=== PATIENT | female | born 1965 | race African-American/Black ===

== ENCOUNTER 2016-05-29 09:05 | Emergency (ER) | payer OTHER ==
[2016-05-29 09:17] VITALS: BP 113/58; PULSE 92; BMI 32.9
--- NOTE | 2016-05-29 09:53 | PDOC ---
History of Present Illness - General History Source: Patient, Old Records Exam Limitations: No Limitations - History of Present Illness Initial Comments: 05/29/16 10:55 The patient is a 50 year old female with a significant past medical history of HTN, HDL, anxiety and gestational diabetes, who presents to the emergency department today for further evaluation of flu like symptoms for 6 days. The patient notes that multiple people at her place of work are sick with influenza and strep throat. The patient states that she has been experiencing loss of appetite, nausea, shakes, and chills. The patient reports a subjective fever Tmax 101.3F. The patient is unsure whether or not she received a flu shot this season. The patient denies vomiting, or diarrhea. The patient denies chest pain, cough, and shortness of breath. <Jewel Thompson - Last Filed: 05/29/16 11:02> <Jeovany Perera - Last Filed: 05/29/16 11:37> - General Chief Complaint: SIRS, Suspected/Possible Stated Complaint: SOB, BODY ACHES Time Seen by Provider: 05/29/16 09:50 Past History <Jewel Thompson - Last Filed: 05/29/16 11:02> - Past Medical History Anemia: No Asthma: No Cancer: No Cardiac Disorders: No CVA: No COPD: No CHF: No Dementia: No Diabetes: Yes GI Disorders: No Disorders: No HTN: Yes Hypercholesterolemia: No Liver Disease: No Seizures: No Thyroid Disease: No - Surgical History Abdominal Surgery: No Appendectomy: No Cardiac Surgery: No Cholecystectomy: Yes Lung Surgery: No Neurologic Surgery: No Orthopedic Surgery: No - Immunization History Immunization Up to Date: Yes (? FLU) - Psycho/Social/Smoking Cessation Hx Anxiety: No Suicidal Ideation: No Smoking History: Current every day smoker Have you smoked in the past 12 months: Yes Number of Cigarettes Smoked Daily: 20 Information on smoking cessation initiated: No 'Breaking Loose' booklet given: 04/16/16 Hx Alcohol Use: No Drug/Substance Use Hx: No Substance Use Type: None Hx Substance Use Treatment: No <Jeovany Perera - Last Filed: 05/29/16 11:37> - Past Medical History Allergies/Adverse Reactions: Allergies Allergy/AdvReac Type Severity Reaction Status Date / Time Penicillins Allergy Swelling Verified 05/29/16 09:13 Home Medications: Ambulatory Orders Amlodipine Besylate [Norvasc -] 5 mg PO DAILY 04/16/16 Lisinopril [Prinivil] 0 mg PO DAILY 04/16/16 Metformin HCl [Glucophage -] 500 mg PO BID 04/16/16 Pravastatin Sodium [Pravachol -] 0 mg PO HS 04/16/16 Ondansetron [Zofran *Odt*] 8 mg SL TID #30 od.tablet 05/29/16 Review of Systems - Review of Systems Able to Perform ROS?: Yes Comments:: 05/29/16 10:55 GENERAL/CONSTITUTIONAL: (+) Fever, chills, and shakes, HEAD, EYES, EARS, NOSE AND THROAT: No change in vision. No ear pain or discharge. No sore throat. CARDIOVASCULAR: No chest pain or shortness of breath. RESPIRATORY: No cough, wheezing, or hemoptysis. GASTROINTESTINAL: No nausea, vomiting, diarrhea or constipation. GENITOURINARY: No dysuria, frequency, or change in urination. MUSCULOSKELETAL: No joint or muscle swelling or pain. No neck or back pain. SKIN: No rash NEUROLOGIC: No headache, vertigo, loss of consciousness, or change in strength/ sensation. ENDOCRINE: No increased thirst. No abnormal weight change. HEMATOLOGIC/LYMPHATIC: No anemia, easy bleeding, or history of blood clots. ALLERGIC/IMMUNOLOGIC: No hives or skin allergy. <Jewel Thompson - Last Filed: 05/29/16 11:02> *Physical Exam - Vital Signs Last Vital Signs Temp Pulse Resp BP Pulse Ox 101.3 F H 92 H 20 113/58 99 05/29/16 09:14 05/29/16 09:14 05/29/16 09:14 05/29/16 09:14 05/29/16 10:45 - Physical Exam Comments: 05/29/16 11:00 GENERAL: Awake, alert, and fully oriented, in no acute distress HEAD: No signs of trauma EYES: PERRLA, EOMI, sclera anicteric, conjunctiva clear ENT: Auricles normal inspection, hearing grossly normal, nares patent, oropharynx clear without exudates. Moist mucosa NECK: Normal ROM, supple, no lymphadenopathy, JVD, or masses LUNGS: Breath sounds equal, clear to auscultation bilaterally. No wheezes, and no crackles HEART: Regular rate and rhythm, normal S1 and S2, no murmurs, rubs or gallops ABDOMEN: Soft, nontender, normoactive bowel sounds. No guarding, no rebound. No masses EXTREMITIES: Normal range of motion, no edema. No clubbing or cyanosis. No cords, erythema, or tenderness NEUROLOGICAL: Cranial nerves II through XII grossly intact. Normal speech, normal gait SKIN: Warm, Dry, normal turgor, no rashes or lesions noted. <Jewel Thompson - Last Filed: 05/29/16 11:02> - Vital Signs Last Vital Signs Temp Pulse Resp BP Pulse Ox 101.3 F H 92 H 20 113/58 97 05/29/16 09:14 05/29/16 09:14 05/29/16 09:14 05/29/16 09:14 05/29/16 09:14 <Jeovany Perera - Last Filed: 05/29/16 11:37> ED Treatment Course - ADDITIONAL ORDERS Additional order review: 05/29/16 10:20 Group A Strep Rapid Antigen - Final Throat - Medications Given in the ED: ED Medications Discontinued Medications Generic Name Dose Route Start Last Admin Trade Name Freq PRN Reason Stop Dose Admin Acetaminophen 1,000 mg 05/29/16 09:54 05/29/16 10:15 Tylenol - PO 05/29/16 09:55 1,000 mg ONCE ONE Administration Ibuprofen 800 mg 05/29/16 09:54 05/29/16 10:10 Motrin - PO 05/29/16 09:55 800 mg ONCE ONE Administration Ondansetron HCl 8 mg 05/29/16 09:54 05/29/16 10:26 Zofran Odt - SL 05/29/16 09:55 8 mg ONCE ONE Administration <Jewel Thompson - Last Filed: 05/29/16 11:02> *DC/Admit/Observation/Transfer - Attestations Scribe Attestion: 05/29/16 11:00 Documentation prepared by Jewel Thompson, acting as medical observer for Jeovany Perera MD. <Jewel Thompson - Last Filed: 05/29/16 11:02> - Attestations Physician Attestion: 05/29/16 09:50 I, Dr. Jeovany Perera, attest that this document has been prepared under my direction and personally reviewed by me in its entirety. I further attest, that it accurately reflects all work, treatment, procedures and medical decision -making performed by me. <Jeovany Perera - Last Filed: 05/29/16 11:37> Diagnosis at time of Disposition: Viral syndrome - Discharge Dispostion Disposition: HOME Condition at time of disposition: Good - Prescriptions Prescriptions: Ondansetron [Zofran *Odt*] 8 mg SL TID #30 od.tablet - Referrals Referrals: Cuba Lincoln MD, MD [Primary Care Provider] - - Patient Instructions Printed Discharge Instructions: How to Avoid a Cold or Flu, DI for Viral Upper Respiratory Infection -- Adult Additional Instructions: Dony- Sorry that you are not feeling well. Your test for strep was negative. Your test for Flu was negative, Your CXR for Pneumonia was negative. You have a viral infection and you should be getting over it in a few days. I wrote for some Zofran ODT that you can use to treat your nausea. Follow up with your doctor in a few days. Return to us if worse, new symptoms or problems occur. Jeovany Dennis Dr - Post Discharge Activity Work/School Note: Back to Work
[2016-05-29] MEDS ORDERED: ONDANSETRON *ODT* 4 MG TABLET SL ONE (09:54)
[2016-05-29] MEDS ORDERED: IBUPROFEN 400 MG TABLET (FP) PO ONE ×2 (09:54→10:10)
[2016-05-29] MEDS ORDERED: ACETAMINOPHEN 500 MG TABLET (FP) PO ONE (09:54)
[2016-05-29] MEDS ORDERED: ONDANSETRON 8 MG TABLET (FP) PO ONE (10:10)
[2016-05-29] MEDS ORDERED: ACETAMINOPHEN 325 MG TABLET (FP) ONE (10:10)
[2016-05-29 12:02] VITALS: TEMP 99.1
== END 2016-05-29 12:05 | disposition home or self-care (01) ==
LOC: JER 09:05
DX: B34.9 Viral infection, unspecified (principal); I10 Essential (primary) hypertension; E11.9 Type 2 diabetes mellitus without complications; Z79.84 Long term (current) use of oral hypoglycemic drugs; E78.00 Pure hypercholesterolemia, unspecified; F41.9 Anxiety disorder, unspecified; F17.210 Nicotine dependence, cigarettes, uncomplicated
CPT/HCPCS: 71020-TC; 87070; 87430; 87804; 99282-25

== ENCOUNTER 2016-09-09 15:22 | Emergency (ER) | payer OTHER ==
[2016-09-09 15:29] VITALS: BP 146/92; PULSE 68; TEMP 98.2; BMI 34.0
[2016-09-09] MEDS ORDERED: IBUPROFEN 600 MG TABLET (FP) PO ONE ×3 (15:52→15:58)
--- NOTE | 2016-09-09 15:58 | PDOC ---
History of Present Illness - General Chief Complaint: Injury Stated Complaint: RT ELBOW PAIN, NUMBNESS Time Seen by Provider: 09/09/16 15:36 History Source: Patient Exam Limitations: No Limitations - History of Present Illness Initial Comments: 09/09/16 15:54 50 year old female with medical history of type 2 diabetes, htn and cholesterolemia and a surgical history of tubal ligation and cholecystectomy presents with pain to right elbow. States sustained while working on Thursday by hitting it on metal door. Reports pain with extension of arm. Denies numbness or tingling in fingers. Took no medication so far. Occurred: reports: other (3-4 days ago) Severity: reports: mild Upper Extremity Pain Location: right: elbow Method of Injury: reports: direct blow Modifying Factors: improves with: immobilization Extremity Pain Location - Extremity Pain Location Extremity Pain Locations: right: elbow Past History - Travel Traveled outside of the country in the last 30 days: No Close contact w/someone who was outside of country & ill: No - Past Medical History Allergies/Adverse Reactions: Allergies Allergy/AdvReac Type Severity Reaction Status Date / Time Penicillins Allergy Swelling Verified 09/09/16 15:25 Home Medications: Ambulatory Orders Amlodipine Besylate [Norvasc -] 5 mg PO DAILY 04/16/16 Lisinopril [Prinivil] 0 mg PO DAILY 04/16/16 Metformin HCl [Glucophage -] 500 mg PO BID 04/16/16 Pravastatin Sodium [Pravachol -] 0 mg PO HS 04/16/16 Ondansetron [Zofran *Odt*] 8 mg SL TID #30 od.tablet 05/29/16 Ibuprofen 600 mg PO QID #20 tablet 09/09/16 Anemia: No Asthma: No Cancer: No Cardiac Disorders: No CVA: No COPD: No CHF: No Dementia: No Diabetes: Yes GI Disorders: No Disorders: No HTN: Yes Hypercholesterolemia: No Liver Disease: No Seizures: No Thyroid Disease: No - Surgical History Abdominal Surgery: No Appendectomy: No Cardiac Surgery: No Cholecystectomy: Yes Lung Surgery: No Neurologic Surgery: No Orthopedic Surgery: No - Immunization History Immunization Up to Date: Yes (? FLU) - Psycho/Social/Smoking Cessation Hx Anxiety: No Suicidal Ideation: No Smoking History: Current every day smoker Have you smoked in the past 12 months: Yes Number of Cigarettes Smoked Daily: 20 Information on smoking cessation initiated: No 'Breaking Loose' booklet given: 04/16/16 Hx Alcohol Use: No Drug/Substance Use Hx: No Substance Use Type: None Hx Substance Use Treatment: No Review of Systems - Review of Systems Able to Perform ROS?: Yes Is the patient limited Sinhala proficient: No Constitutional: No: Chills, Fever, Weakness HEENTM: No: Nose Congestion, Tinnitus, Nose Bleeding, Throat Swelling, Dental Problems Respiratory: No: Cough, Orthopnea, Shortness of Breath, Wheezing, Productive cough Cardiac (ROS): No: Chest Pain, Irregular Heart Rate, Chest Tightness ABD/GI: No: Constipated, Diarrhea : No: See HPI, Incontinence, Urgency, Testicular Mass Musculoskeletal: Yes: Joint Pain. No: Joint Swelling Integumentary: No: Bruising, Lumps Neurological: No: Numbness, Paresthesia *Physical Exam - Vital Signs Last Vital Signs Temp Pulse Resp BP Pulse Ox 98.2 F 68 19 146/92 98 09/09/16 15:25 09/09/16 15:25 09/09/16 15:25 09/09/16 15:25 09/09/16 15:25 - Physical Exam General Appearance: Yes: Appropriately Dressed. No: Apparent Distress HEENT: positive: EOMI, LAN, TMs Normal, Pharynx Normal Neck: positive: Supple Respiratory/Chest: positive: Lungs Clear, Normal Breath Sounds Cardiovascular: positive: Regular Rhythm, Regular Rate, S1, S2 Musculoskeletal: positive: Normal Inspection, Other (unable to completely extend right arm at elbow without pain). negative: Decreased Range of Motion, Vertebral Tenderness Extremity: positive: Normal Capillary Refill, Normal Inspection, Normal Range of Motion, Other (tenderness with palpation over lateral aspect of right elbow) Medical Decision Making - Medical Decision Making 09/09/16 15:58 50 year old female presents with right elbow pain ibuprofen 600mg po xray of right elbow 09/09/16 16:28 xray with no fracture or acute pathology *DC/Admit/Observation/Transfer Diagnosis at time of Disposition: Right elbow pain - Discharge Dispostion Disposition: HOME Condition at time of disposition: Good Admit: No - Prescriptions Prescriptions: Ibuprofen 600 mg PO QID #20 tablet - Referrals Referrals: Cuba Lincoln MD, MD [Primary Care Provider] - Ronald Jarvis MD [Staff Physician] - - Patient Instructions Printed Discharge Instructions: DI for Elbow Pain Additional Instructions: Activity as tolerated. May use sling for comfort. Please do exercises as directed. If symptoms continues please call orthopedic for follow up appointment - Post Discharge Activity Work/School Note: Back to Work
== END 2016-09-09 16:35 | disposition home or self-care (01) ==
LOC: JERFT 15:22
DX: M25.521 Pain in right elbow (principal); W22.8XXA Striking against or struck by other objects, initial encounter; Y93.89 Activity, other specified; Y92.89 Other specified places as the place of occurrence of the external cause; Y99.0 Civilian activity done for income or pay; I10 Essential (primary) hypertension; Z79.84 Long term (current) use of oral hypoglycemic drugs; E78.00 Pure hypercholesterolemia, unspecified
CPT/HCPCS: 73070-TC-RT; 99281-25

== ENCOUNTER 2019-04-23 06:21 | Emergency (ER) | payer OTHER ==
[2019-04-23 07:12] VITALS: BMI 28.3
[2019-04-23] MEDS ORDERED: ONDANSETRON 4 MG/2 ML VIAL IVPUSH ONE (07:32)
[2019-04-23] MEDS ORDERED: SODIUM CHLORIDE 0.9% 500 ML INFUS.BAG IV ONE (07:32)
--- NOTE | 2019-04-23 07:33 | PDOC ---
History of Present Illness - General Chief Complaint: Respiratory Stated Complaint: COUGH Time Seen by Provider: 04/23/19 07:26 - History of Present Illness Initial Comments: 04/23/19 08:58 CHIEF COMPLAINT: multiple complaints HISTORY OF PRESENT ILLNESS: 53 yo F with hx of HTN, HDL, anxiety presents to ED with multiple complaints x 1 week. Patient c/o of cough, runny nose, R ear pain , nausea, and "feeling of water fall in my stomach." Patient reports she has not taken any of her home meds in one week due to her nausea secondary to "not feeling well." She reports one episode of vomiting over the week but has had decreased appetite and was afraid to take her medications without food. She reports feeling "dizzy and weak but maybe because I haven't eaten." No recent travel or sick contacts. PAST MEDICAL HISTORY: Denies past medical history FAMILY HISTORY: Denies SOCIAL HISTORY: Denies tobacco, alcohol, illicit drug use. SURGICAL HISTORY: Denies ALLERGIES: No known drug allergies REVIEW OF SYSTEMS General/Constitutional: Subjective fever. Denies weakness, weight change. HEENT: Denies change in vision. Denies ear pain or discharge. Denies sore throat. Cardiovascular: Denies chest pain or shortness of breath. Respiratory: Cough, Denies wheezing, or hemoptysis. Gastrointestinal: Nausea, dnies vomiting, diarrhea or constipation. Denies rectal bleeding. Genitourinary: Denies dysuria, frequency, or change in urination. Musculoskeletal: Denies joint or muscle swelling or pain. Denies neck or back pain. Skin and breasts: Denies rash or easy bruising. Neurologic: Denies headache, vertigo, loss of consciousness, or loss of sensation. Psychiatric: Denies depression or anxiety. PHYSICAL EXAM General Appearance: Well-appearing, appropriately dressed. No apparent distress , no intoxication. HEENT: EOMI, PERRLA, normal ENT inspection, normal voice, TMs normal, pharynx normal. No conjunctival pallor. No photophobia, scleral icterus. Neck: Supple. Trachea midline. No tenderness, rigidity, carotid bruit, stridor , lymphadenopathy, or thyromegaly. Respiratory/Chest: Lungs CTAB. No shortness of breath, chest tenderness, respiratory distress, accessory muscle use. No crackles, rales, rhonchi, stridor , wheezing, dullness Cardiovascular: RRR. S1, S2. No JVD, murmur, bradycardia, tachycardia. Vascular Pulses: Dorsalis-Pedis (R): 2+, Dorsalis-Pedis (L): 2+ Gastrointestinal/Abdominal: Normal bowel sounds. Abdomen soft, non-distended. No tenderness or rebound tenderness. No organomegaly, pulsatile mass, guarding , hernia, hepatomegaly, splenomegaly. Lymphatic: No adenopathy, tenderness. Musculoskeletal/Extremities: Normal inspection. FROM of all extremities, normal capillary refill. Pelvis Stable. No CVA tenderness. No tenderness to extremities, pedal edema, swelling, erythema or deformity. Integumentary: Appropriate color, dry, warm. No cyanosis, erythema, jaundice or rash Neurologic: meat supervisor II-XII intact. Fully oriented, alert. Appropriate mood/affect. Motor strength 5/5. No appreciable EOM palsy, facial droop or sensory deficit. 04/23/19 09:00 04/23/19 09:03 04/23/19 09:46 Past History - Past Medical History Allergies/Adverse Reactions: Allergies Allergy/AdvReac Type Severity Reaction Status Date / Time Penicillins Allergy Swelling Verified 04/23/19 07:04 Home Medications: Ambulatory Orders Albuterol 0.083% Nebulizer Sushma [Ventolin 0.083% Nebulizer Soln -] 1 neb NEB Q4H #30 vial 04/23/19 Albuterol Sulfate Inhaler - [Ventolin HFA Inhaler -] 1 - 2 inh PO Q4H #1 inhaler 04/23/19 Benzonatate [Tessalon Pearls -] 100 mg PO TID #21 capsule 04/23/19 Buspirone HCl [Buspar -] 15 mg PO DAILY 04/23/19 Losartan Potassium [Cozaar] 100 mg PO DAILY 04/23/19 Metformin HCl [Glucophage] 1,000 mg PO BID 04/23/19 Ondansetron HCl [Zofran] 4 mg PO TID PRN #15 tablet 04/23/19 Rosuvastatin Calcium [Crestor] 20 mg PO HS 04/23/19 Sertraline HCl [Zoloft -] 50 mg PO DAILY 04/23/19 Anemia: No Asthma: No Cancer: No Cardiac Disorders: No CVA: No COPD: No CHF: No Dementia: No Diabetes: Yes GI Disorders: No Disorders: No HTN: Yes Hypercholesterolemia: No Liver Disease: No Seizures: No Thyroid Disease: No - Surgical History Abdominal Surgery: No Appendectomy: No Cardiac Surgery: No Cholecystectomy: Yes Lung Surgery: No Neurologic Surgery: No Orthopedic Surgery: No - Immunization History Immunization Up to Date: Yes (? FLU) - Psycho Social/Smoking Cessation Hx Smoking History: Current every day smoker Have you smoked in the past 12 months: Yes Number of Cigarettes Smoked Daily: 20 Information on smoking cessation initiated: No 'Breaking Loose' booklet given: 04/16/16 Hx Alcohol Use: No Drug/Substance Use Hx: No Substance Use Type: None Hx Substance Use Treatment: No *Physical Exam - Vital Signs Last Vital Signs Temp Pulse Resp BP Pulse Ox 98.1 F 66 18 177/74 H 100 04/23/19 07:05 04/23/19 07:05 04/23/19 07:05 04/23/19 07:05 04/23/19 07:05 ED Treatment Course - LABORATORY CBC & Chemistry Diagram: 04/23/19 08:40 04/23/19 08:40 Medical Decision Making - Medical Decision Making 04/23/19 09:48 53 yo F with hx of HTN, HDL, anxiety presents to ED with multiple complaints x 1 week. -labs -EKG -flu -IVF, zofran -CXR EKG unremarkable, unchanged from prior. 04/23/19 11:51 CXR negative. flu negative. labs unremarkable. clinical presentation consistent with viral URI. -ramon izquierdo pt requests albuterol pump and nebs. Advised patient to take medication as prescribed and follow up with PCP within the next week. Advised patient of signs and symptoms for return to ED. Patient verbalized understanding and agrees to plan. Discharge - Discharge Information Problems reviewed: Yes Clinical Impression/Diagnosis: Viral syndrome HTN (hypertension) Qualifiers: Hypertension type: unspecified Qualified Code(s): I10 - Essential (primary) hypertension Condition: Stable Disposition: HOME - Admission No - Additional Discharge Information Prescriptions: Albuterol 0.083% Nebulizer Sushma [Ventolin 0.083% Nebulizer Soln -] 1 neb NEB Q4H #30 vial Albuterol Sulfate Inhaler - [Ventolin HFA Inhaler -] 1 - 2 inh PO Q4H #1 inhaler Benzonatate [Tessalon Pearls -] 100 mg PO TID #21 capsule Ondansetron HCl [Zofran] 4 mg PO TID PRN #15 tablet PRN Reason: nausea/vomiting - Follow up/Referral Referrals: Cuba Lincoln MD, [Primary Care Provider] - - Patient Discharge Instructions Patient Printed Discharge Instructions: DI for Viral Upper Respiratory Infection -- Adult Additional Instructions: You were tested negative for flu today. Your chest x-ray was negative for pneumonia. Please take medications as prescribed. Please resume your daily medications as prescribed by your primary care doctor. Follow up with Dr. Lincoln within the next 5 days for continued monitoring of your symptoms. If you develop persistent fever; worsening nausea, vomiting, or diarrhea; shortness of breath; chest pain; or any new or worsening symptoms, please return to the ER. - Post Discharge Activity
[2019-04-23] MEDS ORDERED: ONDANSETRON 4 MG/2 ML VIAL ONE (08:26)
[2019-04-23 08:55] LABS: BASO % 0.3 % (0-2.0); EOS % 1.9 % (0-4.5); HEMATOCRIT 47.9 % (32.4-45.2); HEMOGLOBIN 15.9 GM/dL (10.7-15.3); LYMPH % 59.4 % (8-40); MCH 31.1 pg (25.7-33.7); MCHC 33.2 g/dl (32.0-36.0); MEAN CELL VOLUME 93.7 fl (80-96); MEAN PLT VOLUME 9.4 fl (7.5-11.1); MONO % 7.1 % (3.8-10.2); NEUT % 31.3 % (42.8-82.8); PLATELET COUNT 244 K/MM3 (134-434); RBC 5.11 M/mm3 (3.60-5.2); WHITE BLOOD COUNT 6.2 K/mm3 (4.0-10.0)
[2019-04-23 09:24] LABS: BILIRUBIN,TOTAL 0.4 mg/dL (0.2-1); BLOOD UREA NITROGEN 6.9 mg/dL (7-18); CALCIUM 9.1 mg/dL (8.5-10.1); CREATININE 0.7 mg/dL (0.55-1.3); POTASSIUM 4.2 mmol/L (3.5-5.1); TOT PROT 7.2 g/dl (6.4-8.2)
[2019-04-23 10:52] VITALS: BP 124/68; PULSE 60; TEMP 98
--- NOTE | 2019-04-23 13:30 | EKG ---
Test Reason : Blood Pressure : / mmHG Vent. Rate : 065 BPM Atrial Rate : 065 BPM P-R Int : 174 ms QRS Dur : 096 ms QT Int : 398 ms P-R-T Axes : 060 044 -17 degrees QTc Int : 413 ms NORMAL SINUS RHYTHM NONSPECIFIC T WAVE ABNORMALITY ABNORMAL ECG WHEN COMPARED WITH ECG OF 16-APR-2016 16:09, CRITERIA FOR SEPTAL INFARCT ARE NO LONGER PRESENT NON-SPECIFIC CHANGE IN ST SEGMENT IN ANTERIOR LEADS Confirmed by MD LUCILLE, KEIRY ([id number]) on 04/23/2019 1:30:21 PM Referred By: Confirmed By:KEIRY ADKINS MD
== END 2019-04-23 10:53 | disposition home or self-care (01) ==
LOC: JER 06:21
DX: J06.9 Acute upper respiratory infection, unspecified (principal); B34.9 Viral infection, unspecified; I10 Essential (primary) hypertension; E11.9 Type 2 diabetes mellitus without complications; Z79.84 Long term (current) use of oral hypoglycemic drugs; E78.5 Hyperlipidemia, unspecified; F41.9 Anxiety disorder, unspecified; Z88.0 Allergy status to penicillin
CPT/HCPCS: 36415; 71046-TC-FY; 80053; 83690; 85025; 87804; 93005; 93010; 99282-25

== ENCOUNTER 2022-04-10 09:40 | Emergency (ER) | payer BC, OTHER ==
[2022-04-10 09:49] VITALS: TEMP 97.7; BMI 25.7
[2022-04-10] MEDS ORDERED: LORazepam 2 MG/ML SDV VIAL IVPUSH ONE (12:05)
[2022-04-10 12:13] LABS: BASO % 0.8 % (0-2.0); EOS % 1.4 % (0-4.5); HEMATOCRIT 49.6 % (32.4-45.2); HEMOGLOBIN 16.6 GM/dL (10.7-15.3); LYMPH % 40.7 % (8-40); MCHC 33.4 g/dl (32.0-36.0); MEAN CELL VOLUME 92.7 fl (80-96); MONO % 7.8 % (3.8-10.2); NEUT % 49.3 % (42.8-82.8); PLATELET COUNT 315 10^3/uL (134-434); RBC 5.36 M/mm3 (3.60-5.2); WHITE BLOOD COUNT 9.1 K/mm3 (4.0-10.0)
[2022-04-10 12:32] LABS: CALCIUM 10.1 mg/dL (8.5-10.1)
[2022-04-10 12:33] LABS: ALBUMIN 4.4 g/dl (3.4-5.0); BLOOD UREA NITROGEN 5.9 mg/dL (7-18)
[2022-04-10 12:36] LABS: CREATININE 0.8 mg/dL (0.55-1.3)
[2022-04-10 12:37] LABS: TOT PROT 7.8 g/dl (6.4-8.2)
[2022-04-10 12:38] LABS: BILIRUBIN,TOTAL 0.4 mg/dL (0.2-1)
[2022-04-10 15:12] VITALS: BP 151/89; PULSE 68; RESP 17
[2022-04-10 15:33] LABS: CSF APPEARANCE CLEAR (CLEAR); CSF COLOR COLORLESS (COLORLESS); CSF WBC 0 mm3 (0-5)
[2022-04-10] MEDS ORDERED: LACTATED RINGERS SOLUTION 1,000 ML IV STA (15:33)
[2022-04-10 15:34] LABS: CSF APPEARANCE CLEAR (CLEAR); CSF COLOR COLORLESS (COLORLESS); CSF WBC 0 mm3 (0-5)
[2022-04-10 17:43] LABS: BF GLUCOSE (CSF ONLY) 80 mg/dL (40-70)
== END 2022-04-10 18:29 | disposition home or self-care (01) ==
LOC: SUPCPDRO 09:40 → JER 09:40
PROC: 009U3ZX Drainage of Spinal Canal, Percutaneous Approach, Diagnostic (ICD-10-PCS; principal; 2022-04-10)
PROC: 3E033GC Introduction of Other Therapeutic Substance into Peripheral Vein, Percutaneous Approach (ICD-10-PCS; 2022-04-10)
DX: R20.2 Paresthesia of skin (principal)
CPT/HCPCS: 36415; 70450-TC; 80053; 82945; 83036; 84157; 85025; 87070; 87205; 99285-25

== ENCOUNTER → 2022-10-01 | Day surgery (SDC) | payer BC | END | disposition home or self-care (01) | LOC: JMAMMOTONE 08:35 → JRADUS-SUR 08:35 | PROVIDERS: ATTEND Physician Assistant | PROC: 0H9T3ZX Drainage of Right Breast, Percutaneous Approach, Diagnostic (ICD-10-PCS; principal; 2022-10-01) | DX: D24.1 Benign neoplasm of right breast (principal) | CPT/HCPCS: 19083; 87899; 88305-TC; 88341-TC; 88342-TC; A4648 ==

== ENCOUNTER 2023-05-27 11:01 | Emergency (ER) | payer BC ==
[2023-05-27 11:41] VITALS: BP 147/90; PULSE 66; RESP 14; TEMP 98; BMI 26.4
[2023-05-27] MEDS ORDERED: DEXAMETHASONE 4 MG TABLET (FP) PO ONE (13:29)
[2023-05-27] MEDS ORDERED: ACETAMINOPHEN 325 MG TABLET (FP) PO ONE (13:29)
[2023-05-27] MEDS ORDERED: DEXAMETHASONE 4 MG TABLET (FP) ONE (13:32)
[2023-05-27] MEDS ORDERED: ACETAMINOPHEN 325 MG TABLET (FP) ONE (13:32)
[2023-05-27 14:20] LABS: THROAT:GRP A STREP NOT DETECTED (NOTDETECTED)
== END 2023-05-27 13:47 | disposition home or self-care (01) ==
LOC: JER 11:01 → JERFT 11:01
DX: H92.03 Otalgia, bilateral (principal); R51.9 Headache, unspecified; J02.9 Acute pharyngitis, unspecified; Z20.822 Contact with and (suspected) exposure to COVID-19
CPT/HCPCS: 0241U-QW; 87651; 99283-25

== ENCOUNTER 2023-08-29 17:04 | Inpatient (IN) | payer BC ==
[2023-08-29] MEDS ORDERED: NITROGLYCERIN SUBLINGUAL 1/150 0.4 MG TAB ONE (17:32)
[2023-08-29] MEDS ORDERED: ONDANSETRON 4 MG/2 ML VIAL ONE (17:33)
[2023-08-29] MEDS ORDERED: ASPIRIN 81 MG CHEWABLE TABLETS ONE (17:33)
[2023-08-29 17:36] LABS: BASO % 0.6 % (0-2.0); EOS % 2.7 % (0-4.5); HEMATOCRIT 47.3 % (32.4-45.2); HEMOGLOBIN 16.1 GM/dL (10.7-15.3); LYMPH % 49.8 % (8-40); MCH 31.4 pg (25.7-33.7); MEAN CELL VOLUME 92.4 fl (80-96); MEAN PLT VOLUME 8.8 fl (7.5-11.1); MONO % 6.4 % (3.8-10.2); NEUT % 40.5 % (42.8-82.8); PLATELET COUNT 251 10^3/uL (134-434); RBC 5.12 M/mm3 (3.60-5.2); WHITE BLOOD COUNT 8.7 K/mm3 (4.0-10.0)
[2023-08-29] MEDS: NITROGLYCERIN SUBLINGUAL 1/150 0.4 MG TAB SL ONE (17:38)
[2023-08-29] MEDS: ASPIRIN 81 MG CHEWABLE TABLETS PO ONE (17:38)
[2023-08-29] MEDS: ONDANSETRON 4 MG/2 ML VIAL IVPUSH ONE (17:39)
[2023-08-29 17:52] LABS: INR 1.09 (0.83-1.09); PROTHROMBIN TIME (PATIENT) 12.3 SEC (9.7-13.0)
[2023-08-29 17:55] LABS: ACTIVATED PTT 31.1 SECONDS (25.2-36.5)
[2023-08-29 18:03] LABS: POTASSIUM 3.6 mmol/L (3.5-5.1)
[2023-08-29 18:05] LABS: ALBUMIN 4.1 g/dl (3.4-5.0); CALCIUM 9.8 mg/dL (8.5-10.1)
[2023-08-29 18:06] LABS: BLOOD UREA NITROGEN 9.5 mg/dL (7-18)
[2023-08-29 18:09] LABS: CREATININE 0.9 mg/dL (0.55-1.3)
[2023-08-29] MEDS ORDERED: ACETAMINOPHEN INJECTION 100 ML IVPB ONE (18:09)
[2023-08-29] MEDS ORDERED: FAMOTIDINE 10 MG TABLET ONE (18:09)
[2023-08-29 18:10] LABS: BILIRUBIN,TOTAL 0.4 mg/dL (0.2-1); TOT PROT 7.4 g/dl (6.4-8.2)
[2023-08-29] MEDS: ACETAMINOPHEN 1000 MG/100 ML BAG IVPB ONE (18:10)
[2023-08-29] MEDS: FAMOTIDINE 10 MG TABLET PO ONE (18:10)
[2023-08-30 00:51] VITALS: BMI 30.4
[2023-08-30] MEDS ORDERED: INSULIN (NOVOLOG) ASPART 100 UNITS/ML 10ML VIAL ONE ×2 (06:37→21:24)
[2023-08-30] MEDS: INSULIN ASPART SLIDING SCALE (NOVOLOG) 1 VIAL SQ SCH (06:38)
[2023-08-30 07:25] LABS: POTASSIUM 4.8 mmol/L (3.5-5.1)
[2023-08-30 07:27] LABS: BASO % 0.2 % (0-2.0); HEMATOCRIT 43.5 % (32.4-45.2); HEMOGLOBIN 14.6 GM/dL (10.7-15.3); LYMPH % 34.7 % (8-40); MCH 31.3 pg (25.7-33.7); MCHC 33.5 g/dl (32.0-36.0); MEAN CELL VOLUME 93.4 fl (80-96); MEAN PLT VOLUME 9.2 fl (7.5-11.1); MONO % 7.5 % (3.8-10.2); NEUT % 55.6 % (42.8-82.8); PLATELET COUNT 213 10^3/uL (134-434); RBC 4.66 M/mm3 (3.60-5.2); RDW 13.8 % (11.6-15.6); WHITE BLOOD COUNT 7.8 K/mm3 (4.0-10.0)
[2023-08-30 07:37] LABS: ALBUMIN 3.5 g/dl (3.4-5.0); CALCIUM 9.1 mg/dL (8.5-10.1); MAGNESIUM 2.2 mg/dL (1.8-2.4)
[2023-08-30 07:38] LABS: BLOOD UREA NITROGEN 14.3 mg/dL (7-18)
[2023-08-30 07:39] LABS: BILIRUBIN,TOTAL 0.4 mg/dL (0.2-1); TOT PROT 6.5 g/dl (6.4-8.2)
[2023-08-30 07:40] LABS: CREATININE 0.9 mg/dL (0.55-1.3); PHOSPHOROUS 4.3 mg/dL (2.5-4.9)
[2023-08-30 08:07] LABS: URINE APPEARANCE CLEAR; URINE BILIRUBIN NEGATIVE (NEGATIVE); URINE COLOR YELLOW; URINE GLUCOSE (UA) NEGATIVE (NEGATIVE); URINE KETONE NEGATIVE (NEGATIVE); URINE LEUK ESTERASE NEGATIVE (NEGATIVE); URINE NITRITE NEGATIVE (NEGATIVE); URINE PROTEIN NEGATIVE (NEGATIVE); URINE UROBILINOGEN 0.2 mg/dL (0.2-1.0)
[2023-08-30] MEDS: LOSARTAN POTASSIUM 50 MG TABLET PO SCH (09:41)
[2023-08-30] MEDS: NICOTINE 21 MG/24 HOURS TOPICAL PATCH TD SCH (09:48)
[2023-08-30] MEDS: SERTRALINE HCL 50 MG TABLET (FP) PO SCH (09:48)
[2023-08-30] MEDS: ENOXAPARIN NA (PORCINE) 40 MG/0.4 ML DISP.SYRIN SQ SCH (09:49)
[2023-08-30] MEDS ORDERED: busPIRone HCL 10 MG TABLET (FP) PO SCH (10:05)
[2023-08-30] MEDS: busPIRone HCL 10 MG TABLET (FP) PO SCH (10:31)
[2023-08-30] MEDS ORDERED: ONDANSETRON 4 MG/2 ML VIAL IM PRN (11:56)
[2023-08-30] MEDS: POLYETHYLENE GLYCOL (HEALTHYLAX) 3350 17 GM PACKET PO SCH (12:32)
[2023-08-30] MEDS: PANTOPRAZOLE SODIUM 40 MG VIAL IVPUSH SCH (12:32)
[2023-08-30] MEDS: ROSUVASTATIN CA 20 MG TABLET PO SCH (21:28)
[2023-08-31 06:15] VITALS: RESP 14
[2023-08-31] MEDS: ACETAMINOPHEN 325 MG TABLET (FP) PO PRN (09:25)
[2023-08-31 10:08] VITALS: BP 135/84; PULSE 59; TEMP 98
== END 2023-08-31 15:38 | disposition home or self-care (01) | DRG 313 ==
LOC: JER 17:04 → JERBED 22:53 → OBSVTOIN 23:41 → J2W 08-30 00:56
PROVIDERS: ADMIT Internal Medicine; ATTEND Family Medicine
DX: R07.89 Other chest pain (principal); J92.9 Pleural plaque without asbestos; E11.9 Type 2 diabetes mellitus without complications; I10 Essential (primary) hypertension; E78.00 Pure hypercholesterolemia, unspecified; M94.0 Chondrocostal junction syndrome [Tietze]; F17.210 Nicotine dependence, cigarettes, uncomplicated; F41.8 Other specified anxiety disorders; K21.9 Gastro-esophageal reflux disease without esophagitis; Z91.89 Other specified personal risk factors, not elsewhere classified; Z88.0 Allergy status to penicillin
CPT/HCPCS: 36415; 71045-TC-FY; 71275-TC; 74174-TC; 80053; 80061; 81003; 82550; 82962; 83735; 84100; 84443; 84484; 85025; 85379; 85610; 85730; 86850; 86900; 86901; 93005; 93010; 99285-25; G0378; J0131; Q9967

== ENCOUNTER 2024-08-09 15:14 | Emergency (ER) | payer BC ==
[2024-08-09 15:18] VITALS: BP 101/74; PULSE 85; RESP 18; TEMP 98.7; BMI 27.0
[2024-08-09] MEDS ORDERED: ACETAMINOPHEN INJECTION 100 ML ONE (16:32)
[2024-08-09] MEDS ORDERED: FAMOTIDINE 20 MG/50 ML IVPB 20 MG/50 ML MG IVPB ONE (16:32)
[2024-08-09] MEDS ORDERED: ONDANSETRON 4 MG/2 ML VIAL ONE (16:32)
[2024-08-09] MEDS: SODIUM CHLORIDE 0.9% 1000 ML INFUS.BAG IV ONE (16:38)
[2024-08-09] MEDS: FAMOTIDINE 20 MG/50 ML IVPB 20 MG/50 ML MG IVPB ONE (16:38)
[2024-08-09] MEDS: ACETAMINOPHEN 1000 MG/100 ML BAG IVPB ONE (16:38)
[2024-08-09] MEDS: ONDANSETRON 4 MG/2 ML VIAL IVPUSH ONE (16:38)
[2024-08-09 17:03] LABS: ABSOLUTE IMMATURE GRANULOCYTES 0.04 x10^3/uL (0.0-0.031); BASOPHILS # 0.03 x10^3/uL (0.01-0.08); EOSINOPHIL % 0.4 % (0.7-5.8); EOSINOPHILS # 0.04 x10^3/uL (0.04-0.36); HEMATOCRIT 54.2 % (34.1-44.9); HEMOGLOBIN 17.8 g/dL (11.2-15.7); MCHC 32.8 g/dl (32.2-35.5); MEAN CELL VOLUME 93.6 fl (79.4-94.8); MEAN PLT VOLUME 11.7 fl (9.4-12.3); MONOCYTE # 0.51 x10^3/uL (0.24-0.86); MONOCYTE % 5.1 % (4.7-12.5); PLATELET COUNT 231 x10^3/uL (182-369); RDW 13.2 % (12.3-16.6)
[2024-08-09 17:22] LABS: CALCIUM 9.9 mg/dL (8.5-10.1)
[2024-08-09 17:23] LABS: ALBUMIN 4.3 g/dl (3.4-5.0); BLOOD UREA NITROGEN 11.7 mg/dL (7-18); MAGNESIUM 1.9 mg/dL (1.8-2.4)
[2024-08-09 17:27] LABS: BILIRUBIN,TOTAL 0.7 mg/dL (0.2-1); TOT PROT 7.9 g/dl (6.4-8.2)
[2024-08-09 18:53] LABS: HCV DIAGNOSTIC IN-HOUSE W/RFLX NON-REACTIVE (NONREACTIVE); HIV INTERPRETATION NEGATIVE (NEGATIVE)
== END 2024-08-09 19:45 | disposition home or self-care (01) ==
LOC: JER 15:14
PROC: 3E033GC Introduction of Other Therapeutic Substance into Peripheral Vein, Percutaneous Approach (ICD-10-PCS; principal; 2024-08-09)
PROC: 3E033NZ Introduction of Analgesics, Hypnotics, Sedatives into Peripheral Vein, Percutaneous Approach (ICD-10-PCS; 2024-08-09)
PROC: 3E033GC Introduction of Other Therapeutic Substance into Peripheral Vein, Percutaneous Approach (ICD-10-PCS; 2024-08-09)
DX: K52.9 Noninfective gastroenteritis and colitis, unspecified (principal); R11.2 Nausea with vomiting, unspecified; R10.13 Epigastric pain; R63.0 Anorexia
CPT/HCPCS: 0241U-QW; 36415; 80053; 83690; 83735; 85025; 86803; 87389; 93005; 93010; 99284-25; J0131